=== PATIENT | female | born 1975 | race Caucasian/White ===

== ENCOUNTER 2017-12-27 23:08 | Emergency (ER) | payer OTHER ==
[~2017-12-27] VITALS: Ht 175.3 cm; Wt 70.4 kg
[2017-12-27 23:09] VITALS: BP 128/91
[2017-12-28] MEDS ORDERED: azithromycin 250mg tablet PO ONE (00:05)
[2017-12-28] MEDS ORDERED: CefTRIAXone 1000mg IM Kit (w/lidocaine diluent) IM ONE (00:05)
[2017-12-28] MEDS ORDERED: DOLU50TA PO (00:31)
[2017-12-28] MEDS ORDERED: TENO300T5 PO (00:31)
[2017-12-28 01:02] LABS: URINE HCG NEGATIVE (NEG)
[2017-12-28 01:24] LABS: HIV ANTIBODY 1&2 RAPID NON-REACTIVE (Neg)
== END 2017-12-28 00:49 | disposition home or self-care (01) ==
LOC: ER 23:09 → EEVIPCON 23:09 → ER 12-28 00:49
DX: Z11.3 Encounter for screening for infections with a predominantly sexual mode of transmission (principal); Z88.2 Allergy status to sulfonamides; Z79.899 Other long term (current) drug therapy
CPT/HCPCS: 36415; 81025; 86703; 87491; 87591; 96372; 99284; J0696